=== PATIENT | male | born 1995 | race Caucasian/White ===

== ENCOUNTER 2017-06-03 22:27 | Emergency (ER) | payer SELFPAY ==
[~2017-06-03] VITALS: Ht 188 cm; Wt 87.0 kg
[2017-06-03] MEDS ORDERED: MORPHINE SULFATE 4 MG/ML CPJ (NOT FOR IM USE) IV ONE (23:15)
[2017-06-03] MEDS ORDERED: TETANUS, DIPHTHERIA, PERTUSSIS VAC/PF 0.5ML (>7YR OLD) IM ONE (23:15)
[2017-06-04 01:55] VITALS: BP 135/85
== END 2017-06-04 01:58 | disposition home or self-care (01) ==
LOC: EDBD 22:27 → ER 22:43
DX: S81.802A Unspecified open wound, left lower leg, initial encounter (principal); W32.0XXA Accidental handgun discharge, initial encounter; Y93.89 Activity, other specified; Y92.89 Other specified places as the place of occurrence of the external cause
CPT/HCPCS: 73590; 90715; 96372; 96374; 99284; J2270; Z7610

== ENCOUNTER 2018-02-19 23:34 | Emergency (ER) | payer SELFPAY ==
[~2018-02-19] VITALS: Ht 188 cm; Wt 83.0 kg
[2018-02-20] MEDS ORDERED: IBUPROFEN 600MG TABLET PO ONE (02:00)
[2018-02-20 02:24] VITALS: BP 114/67
== END 2018-02-20 02:24 | disposition home or self-care (01) ==
LOC: ER 23:34
DX: H61.22 Impacted cerumen, left ear (principal)
CPT/HCPCS: 69210; 99284